=== PATIENT | male | born 1950 | race Caucasian/White ===

== ENCOUNTER → 2018-09-08 | Outpatient (CLI) | payer OTHER ==
--- NOTE | 2018-09-08 14:39 | REP ---
CT IAC'S WITHOUT CONTRAST: HISTORY: Bilateral hearing loss. The internal auditory canals, cochlea, vestibules and semicircular canals are normal in appearance. There is no carotid canal or jugular bulb dehiscence. The ossicles are normal in configuration and position. The scutum and right tegmen are intact. There are areas of dehiscence in the left tegmen. The middle ear cavities and mastoid air cells are clear. The visualized sinuses are clear. The nasopharynx is normal in appearance. IMPRESSION:Normal CT IAC's. Electronically Signed by Bry Wright MD 09/08/2018 02:51 P
== END ==
LOC: M RAD 13:31
PROVIDERS: ATTEND Otolaryngology
DX: H90.6 Mixed conductive and sensorineural hearing loss, bilateral (principal)

== ENCOUNTER → 2021-04-21 | Outpatient (CLI) | payer OTHER ==
--- NOTE | 2021-04-21 09:20 | REP ---
INDICATION: OTITIS RT EAR. External otitis right ear. COMPARISON: Comparison internal auditory canal CT study is from September 08, 2018. TECHNIQUE: Helical scanning is acquired without contrast through the temporal bones. 1 mm axial images re-formatted. Bone targeted and as soon axial and coronal 1 mm slices are re-formatted. FINDINGS: No intraorbital lesion is appreciated. Maxillary sinuses, ethmoid sinuses, in the visualized frontal and sphenoid sinuses are clear. There is no evidence of mastoid sinus opacification on either side. Deep facial and the visualized intracranial structures are unremarkable. There is minimal vascular calcification in the distal internal carotid arteries. The left external auditory canal is unremarkable. The left middle ear cavity is aerated. Otic capsule is intact. The IAC, cochlear, and vestibular apparatus on the left are unremarkable. No change from comparison study on the left. On the right however, today's images demonstrate a mass-like soft tissue density in the medial portion of the external auditory canal extending into the middle ear cavity, abutting the middle ear ossicles and surrounding the scutum. There is no visible bony erosion however. There is soft tissue density in the middle ear cavity extending medially to the round window as well. The density extends superiorly into the attic. The overall dimension in the medial to lateral plane is 11 mm, by 12 mm craniocaudal, by 7 mm anterior to posterior. The more peripheral segment of the external auditory canal is unremarkable. These findings are new when compared with the 2019 study. IMPRESSION: Soft tissue mass-like density in the medial portion of the right external auditory canal extending into the middle ear cavity as above without observable bony erosion. Suspect cholesteatoma. There is no evidence of mastoiditis. <Electronically signed by Saji Burr > 04/21/21 [id number]
== END ==
LOC: M RAD 08:35
PROVIDERS: ATTEND Otolaryngology
DX: H60.311 Diffuse otitis externa, right ear (principal)